=== PATIENT | female | born 2005 | race Caucasian/White ===

== ENCOUNTER 2025-01-13 19:02 | Emergency (ER) | payer BC, SELFPAY ==
[2025-01-13 19:06] VITALS: BP 142/68
--- NOTE | 2025-01-13 20:48 | ED.GENMED ---
History of Present Illness
General
Chief Complaint: Skin Surface Trauma
Source: patient
Exam Limitations: none
Time Seen by Provider: 01/13/25 20:36
History of Present Illness
History of Present Illness:
19yo right hand dominant female presenting for evaluation of a left index finger laceration that was sustained about 2-3 hours ago. Patient was using a knife to cut something when she slipped and accidentally cut her L index finger. She is having
intermittent paresthesias in the digit. Bleeding controlled on arrival. Unknown last Tdap.
Phy Exam
General Physical Exam
General Presentation: well appearing and no apparent distress
General Skin: warm and dry
General Habitus: normal
General Mental: alert
ENT Exam
ENT Exam: normocephalic
Musculoskeletal Exam
Musculoskeletal Exam: other (1.5cm laceration noted to the medial distal L index finger. Laceration is well approximated and does not require suture repair. ROM of DIP and PIP joint intact. No bony tenderness. Cap refill and sensation intact at
fingertip.)
Skin Exam
Skin Exam: normal color and warm/dry
Psychiatric Exam
Psychiatric Exam: normal mood/affect
Course
Orders/Labs/Results
Orders:
Orders
01/13/25 20:48
Tetanus/Diphth/Acelpertussis [Adacel] 0.5 ml IM .ONCE ONE
Vital Signs
Initial and Last Documented VS:
Initial Vital Signs
Temp Pulse Resp BP Pulse Ox
98 F 63 16 142/68 100
01/13/25 19:06 01/13/25 19:06 01/13/25 19:01/13/25 19:06 01/13/25 19:06
Last Documented Vital Signs
Temp Pulse Resp BP Pulse Ox
98 F 63 16 142/68 100
01/13/25 19:06 01/13/25 19:06 01/13/25 19:06 01/13/25 19:06 01/13/25 20:49
MDM/Problems Addressed
Differential Diagnosis Includes:
19yoF here with L index finger laceration. 1.5cm well approximated laceration noted on exam. No clinical evidence of tendon or bony injury. Digit is neurovascularly intact. Skin glue applied and Tdap updated. Home wound care discussed and ED return
precautions reviewed. She was discharged in stable condition.
*Pulse Oximetry
SaO2: 100
Oxygen Mode of Delivery: Room air
Patient hypoxic: no (100%)
*Critical Care Note
Total Time (30-74mins, 75-104mins- exclusive of procedures): Not Applicable
ED Attending Note
-
Portions of this chart may have been created with voice recognition software.� Occasional wrong word or��sound alike� substitutions may have occurred due to the inherent limitations of voice recognition software.
Discharge Plan
Departure
Patient Disposition: Home (Routine Discharge)
Date of Disposition: 01/13/25
Time of Disposition: 20:49
Patient with high blood pressure during this ER visit?: Yes
Discharge Problem:
Laceration of left index finger
Instructions: Laceration Repair With Glue (DC)
Referrals:
[facility] [Provider Group]
Activity Restrictions/Additional Instructions:
Try not to get wet for the first few days. Change dressings daily.
Return to the ER with any signs of infection or uncontrolled bleeding.
Interventions
Interventions:
*Risk Screen - Suicide Last Done: 01/13/25 19:07
*Neglect/Abuse Screening Last Done: 01/13/25 19:07
*Nursing Disposition Last Done: 01/13/25 21:06
ED-Skin Assessment Last Done: 01/13/25 20:56
Discharge Date and Time
Discharge Date/Time: 01/13/25 21:06
Print Language: LATVIAN
[2025-01-13] MEDS: ADACEL 0.5 ML IM (21:01)
== END 2025-01-13 21:06 | disposition home or self-care (01) ==
LOC: EMR 19:02
PROVIDERS: EMERGENCY PHYSICIAN Student in an Organized Health Care Education/Training Program
DX: S61.211A Laceration without foreign body of left index finger without damage to nail, initial encounter (principal); W26.0XXA Contact with knife, initial encounter; Z23 Encounter for immunization
CPT/HCPCS: 90471; 12001; 99282; 90715